=== PATIENT | male | born 1950 | race Caucasian/White ===

== ENCOUNTER → 2017-06-22 | Day surgery (SDC) | payer MEDICARE ==
[~2017-06-22] VITALS: Ht 180.3 cm; Wt 95.3 kg
[~2017-06-22] MED LIST: AUGMENTIN 875 M1 TAB PO; CLARITIN10 MG PO; FLONASE ALLERG9.9 ML NS; MOTRIN800 MG PO; PROVENTIL0.09 MG/AC IH; ZITHROMAX Z PA250 MG PO
--- NOTE | ~2017-06-22 | PROC NOTE ---
[place], [place] PROCEDURE NOTE NAME: [facility]ICKERS [id number] UNIT #: [id number] ROOM: DOCTOR: JUANA BELTRAN,DAGO BIRTHDATE: [birth year] DOS: 06/22/2017 PROCEDURE: Colonoscopy. INDICATIONS: Colon cancer screening. An informed consent was obtained from the patient after indication of procedure, the alternatives and potential complications were explained to him. PROCEDURE AND MEDICATIONS: Sedation was administered by Anesthesiology Department. Scope used was Olympus pediatric colonoscope, variable stiffness GIF-180, depth of insertion was to the cecum, which was identified by the usual landmarks, the ileocecal valve and triangular fold. FINDINGS: After adequate sedation, the patient was placed in left lateral decubitus position. Rectal examination showed normal sphincter tone and no external hemorrhoids. Scope was introduced into the rectum, then advanced to the cecum with slight difficulty due to looping in the left colon. The prep was adequate. Multiple diverticula were seen in the left colon consistent with moderate left-sided diverticular disease. The remaining colon mucosa appeared within normal range with no evidence of polyps, ulcerations or obstructing lesions. Retroflexed views in the rectum showed grade 2 internal hemorrhoids. The scope was then withdrawn after the rectum was decompressed. The patient tolerated the procedure well. IMPRESSION: 1. Moderate left-sided diverticular disease. 2. Internal hemorrhoids. 3. Normal colon mucosa, otherwise no polyps seen. PLAN: No need for further GI workup at this time. The patient was advised to follow a high fiber diet and use fiber supplements daily. Repeat screening colonoscopy is advised in 10 years. DAGO ARIAS MD CM:PROCNOTE:PROCEDURE NOTE [id number] DAGO ARIAS MD
[2017-06-22 08:00] VITALS: BP 112/52
[2017-06-22 08:31] VITALS: BP 116/74
[2017-06-22 08:46] VITALS: BP 127/80
[2017-06-22 09:01] VITALS: BP 119/73
== END | disposition home or self-care (01) ==
LOC: SDC 05-29 08:45
DX: Z12.11 Encounter for screening for malignant neoplasm of colon (principal); K57.30 Diverticulosis of large intestine without perforation or abscess without bleeding; K64.8 Other hemorrhoids; Z98.890 Other specified postprocedural states; Z87.891 Personal history of nicotine dependence
CPT/HCPCS: 00810; G0121

== ENCOUNTER 2018-03-04 08:12 | Emergency (ER) | payer MEDICARE ==
[~2018-03-04] VITALS: Wt 90.7 kg
--- NOTE | ~2018-03-04 | EKG ---
[place], [place] ELECTROCARDIOGRAM REPORT NAME: MAGDALENA VICKERS UNIT #: [id number] ROOM: DOCTOR: ONUR ORLANDO MD BIRTHDATE: [birth year] DOS: 03/04/2018 TIME: 0835 hours. FINDINGS: 1. Normal sinus rhythm at 69 beats per minute with ventricular couplet and isolated PVC. 2. An old inferior wall myocardial infarction. 3. An abnormal ECG. 4. No previous tracing is available for comparison. ONUR ORLANDO MD CM:EKGRPT:ELECTROCARDIOGRAM REPORT [id number] ONUR ORLANDO MD
[2018-03-04 08:39] LABS: BASO % 0.5 % (0.0-1.0); EOS # 0.1 10*3/uL (0.0-0.4); EOS % 1.2 % (1.0-4.0); HEMATOCRIT 44.5 % (42.0-52.0); HEMOGLOBIN 14.7 g/dl (14.0-18.0); LYMPH # 3.4 10*3/uL (1.3-4.4); LYMPH % 47.1 % (27.0-41.0); MEAN CELL VOLUME 94.5 fl (80.0-94.0); MEAN CORPUSCULAR HGB 31.2 pg (27.0-31.0); MEAN PLATELET VOLUME 9.7 fl (9.6-12.3); MONO # 0.7 10*3/uL (0.1-1.0); NEUT % 41.1 % (47.0-73.0); PLATELET COUNT AUTOMATED 216 10*3/uL (130-400); RED BLOOD COUNT 4.71 10*6/uL (4.50-5.90); RED CELL DISTRI WIDTH 12.5 % (0-14.5); WHITE BLOOD COUNT 7.3 10*3/uL (4.8-10.8)
[2018-03-04 08:46] LABS: BILIRUBIN NEGATIVE (NEGATIVE); BLOOD NEGATIVE (NEGATIVE); CLARITY CLEAR (CLEAR); COLOR YELLOW (YELLOW); GLUCOSE NEGATIVE (NEGATIVE); KETONE NEGATIVE (NEGATIVE); LEUKO ESTERASE NEGATIVE (NEGATIVE); NITRITE NEGATIVE (NEGATIVE); SPECIFIC GRAVITY <= 1.005 (1.005-1.030); UROBILINOGEN 0.2 E.U./dl (0.2-1.0)
[2018-03-04 08:49] LABS: ACT PARTIAL THROMBO TIME 21.3 SECONDS (20.8-31.5)
[2018-03-04 08:54] LABS: ALBUMIN 3.9 gm/dl (3.1-4.5); ALKALINE PHOSPHATASE 72 U/L (45-117); BUN 17 mg/dl (7-24); CHLORIDE 110 mmol/L (98-107); CREATININE 1.11 mg/dL (0.70-1.30); LIPASE 175 U/L (73-393); POTASSIUM 4.3 mmol/L (3.5-5.1); SGOT/AST 24 IU/L (3-35); SGPT/ALT 30 U/L (12-78); SODIUM 142 mmol/L (136-145); TOTAL PROTEIN 7.9 gm/dL (6.4-8.2)
[2018-03-04 08:54] LABS: EPITHELIAL CELLS 0-2; RBC 0-2 rbc/hpf (0-2); WBC 0-2 wbc/hpf (0-5)
[2018-03-04 08:58] LABS: TROPONIN I < 0.015 ng/ml (<0.045)
[2018-03-04 09:37] VITALS: BP 136/82
[2018-03-04 09:53] LABS: FREE T4 1.12 ng/dl (0.76-1.46)
[2018-03-04 09:58] LABS: THYROID STIM HORMONE (HS) 2.56 uIU/ml (0.358-4.75)
== END 2018-03-04 10:59 | disposition home or self-care (01) ==
LOC: ED 08:12
PROVIDERS: Emergency Medicine
DX: R53.83 Other fatigue (principal); D51.9 Vitamin B12 deficiency anemia, unspecified; Z98.890 Other specified postprocedural states

== ENCOUNTER 2019-07-21 09:09 | Inpatient (IN) | payer MEDICARE, BC ==
[~2019-07-21] VITALS: Ht 180.3 cm; Wt 90.8 kg
[2019-07-21] VITALS (8 sets, daily range): BP systolic 129–154; BP diastolic 75–90
[2019-07-21 10:27] LABS: HEMATOCRIT 42.8 % (42.0-52.0); HEMOGLOBIN 14.2 g/dl (14.0-18.0); MEAN CELL VOLUME 94.3 fl (80.0-94.0); MEAN CORPUSCULAR HGB 31.3 pg (27.0-31.0); MEAN CORPUSCULAR HGB CONC 33.2 g/dl (33.0-37.0); MEAN PLATELET VOLUME 9.7 fl (9.6-12.3); PLATELET COUNT AUTOMATED 257 10*3/uL (130-400); RED BLOOD COUNT 4.54 10*6/uL (4.50-5.90)
[2019-07-21 10:32] LABS: BILIRUBIN NEGATIVE (NEGATIVE); BLOOD 2+ (NEGATIVE); CLARITY CLEAR (CLEAR); COLOR YELLOW (YELLOW); GLUCOSE NEGATIVE (NEGATIVE); KETONE NEGATIVE (NEGATIVE); LEUKO ESTERASE NEGATIVE (NEGATIVE); NITRITE NEGATIVE (NEGATIVE); UROBILINOGEN 0.2 E.U./dl (0.2-1.0)
[2019-07-21 10:48] LABS: ALBUMIN 3.3 gm/dl (3.1-4.5); ALKALINE PHOSPHATASE 76 U/L (45-117); BASOPHILS 1 % (0-1); BUN 17 mg/dl (7-24); CHLORIDE 104 mmol/L (98-107); CREATININE 1.01 mg/dL (0.70-1.30); LIPASE 105 U/L (73-393); POTASSIUM 3.9 mmol/L (3.5-5.1); SGOT/AST 8 IU/L (3-35); SGPT/ALT 18 U/L (12-78); SODIUM 135 mmol/L (136-145); TOTAL CELLS COUNTED 100 #CELLS
[2019-07-21 10:49] LABS: PLATELET SUFFICIENCY NORMAL (NORMAL)
[2019-07-22] VITALS: BP 127/71
[2019-07-22 06:49] LABS: HEMATOCRIT 40.4 % (42.0-52.0); HEMOGLOBIN 13.3 g/dl (14.0-18.0); MEAN CELL VOLUME 94.6 fl (80.0-94.0); MEAN CORPUSCULAR HGB 31.1 pg (27.0-31.0); MEAN CORPUSCULAR HGB CONC 32.9 g/dl (33.0-37.0); MEAN PLATELET VOLUME 9.9 fl (9.6-12.3); PLATELET COUNT AUTOMATED 266 10*3/uL (130-400); RED BLOOD COUNT 4.27 10*6/uL (4.50-5.90)
[2019-07-22 07:20] LABS: ALBUMIN 2.9 gm/dl (3.1-4.5); BUN 14 mg/dl (7-24); CHLORIDE 104 mmol/L (98-107); POTASSIUM 3.7 mmol/L (3.5-5.1); SGOT/AST 11 IU/L (3-35); SODIUM 136 mmol/L (136-145)
[2019-07-22 07:27] LABS: ALKALINE PHOSPHATASE 65 U/L (45-117); CHOLESTEROL 187 mg/dL (<200); CREATININE 1.06 mg/dL (0.70-1.30); FREE T4 1.28 ng/dl (0.76-1.46); HDL CHOLESTEROL 54 mg/dl (40-60); LDL CHOLESTEROL 115 mg/dL (9-159); PHOSPHOROUS 2.8 mg/dL (2.5-4.9); SGPT/ALT 18 U/L (12-78); TOTAL PROTEIN 7.3 gm/dL (6.4-8.2); TRIGLYCERIDES 92 mg/dl (<150); VLDL CHOLESTEROL 18 mg/dL (6-40)
[2019-07-22 07:57] LABS: VITAMIN D, 25-HYDROXY 13.9 ng/mL (30-100)
[2019-07-22 08:00] VITALS: BP 132/77
[2019-07-22 08:05] LABS: PLATELET SUFFICIENCY NORMAL (NORMAL); TOTAL CELLS COUNTED 100 #CELLS
[2019-07-22 12:00] VITALS: BP 138/67
[2019-07-22 16:00] VITALS: BP 125/72
[2019-07-22 20:00] VITALS: BP 124/82
[2019-07-23] VITALS: BP 123/75
[2019-07-23 06:48] LABS: BASO # 0.1 10*3/uL (0.0-0.1); BASO % 0.5 % (0.0-1.0); EOS # 0.2 10*3/uL (0.0-0.4); EOS % 1.8 % (1.0-4.0); HEMATOCRIT 40.5 % (42.0-52.0); HEMOGLOBIN 13.3 g/dl (14.0-18.0); LYMPH # 3.4 10*3/uL (1.3-4.4); LYMPH % 29.1 % (27.0-41.0); MEAN CELL VOLUME 94.8 fl (80.0-94.0); MEAN CORPUSCULAR HGB 31.1 pg (27.0-31.0); MEAN CORPUSCULAR HGB CONC 32.8 g/dl (33.0-37.0); MEAN PLATELET VOLUME 9.7 fl (9.6-12.3); MONO # 1.4 10*3/uL (0.1-1.0); MONO % 11.8 % (3.0-9.0); NEUT # 6.6 10*3/uL (2.3-7.9); NEUT % 56.5 % (47.0-73.0); PLATELET COUNT AUTOMATED 269 10*3/uL (130-400); RED BLOOD COUNT 4.27 10*6/uL (4.50-5.90); WHITE BLOOD COUNT 11.6 10*3/uL (4.8-10.8)
[2019-07-23 08:00] VITALS: BP 132/77
[2019-07-23] MEDS ORDERED: VITAMIN D32000 UNI1 PO (09:06)
[2019-07-23] MEDS ORDERED: AUGMENTIN 875-875 MG PO (09:06)
[2019-07-23 12:00] VITALS: BP 118/75
== END 2019-07-23 13:58 | disposition home or self-care (01) | DRG 872 ==
LOC: ED 09:09 → 4E 14:24 → EDHOLD 14:24 → 4E 15:05
PROVIDERS: Internal Medicine; Nurse Practitioner; ADMIT Family Medicine
DX: A41.9 Sepsis, unspecified organism (principal); E87.1 Hypo-osmolality and hyponatremia; E44.0 Moderate protein-calorie malnutrition; K80.81 Other cholelithiasis with obstruction; K57.32 Diverticulitis of large intestine without perforation or abscess without bleeding; K76.0 Fatty (change of) liver, not elsewhere classified; R65.20 Severe sepsis without septic shock; K59.00 Constipation, unspecified; Z87.891 Personal history of nicotine dependence; Z82.49 Family history of ischemic heart disease and other diseases of the circulatory system; Z83.3 Family history of diabetes mellitus; Z68.27 Body mass index [BMI] 27.0-27.9, adult

== ENCOUNTER 2020-08-17 22:52 | Emergency (ER) | payer OTHER ==
[~2020-08-17] VITALS: Ht 180.3 cm; Wt 95.3 kg
[~2020-08-17 22:52] MED LIST changes: +AUGMENTIN 875-875 MG PO; +VITAMIN D32000 UNI1 PO
[2020-08-17 22:58] VITALS: BP 152/93
[2020-08-17] MEDS ORDERED: AMOXICILLIN500 M2 PO (23:23)
== END 2020-08-18 | disposition home or self-care (01) ==
LOC: ED 22:52
DX: H60.92 Unspecified otitis externa, left ear (principal); H66.92 Otitis media, unspecified, left ear; Z79.899 Other long term (current) drug therapy

== ENCOUNTER → 2021-01-24 | Outpatient (CLI) | payer MEDICARE, BC ==
[~2021-01-24] MED LIST changes: +AMOXICILLIN500 M2 PO
== END | disposition home or self-care (01) ==
LOC: CT 09:18
PROVIDERS: ATTEND Internal Medicine Critical Care Medicine
DX: J43.8 Other emphysema (principal); R91.8 Other nonspecific abnormal finding of lung field; K80.80 Other cholelithiasis without obstruction; I25.10 Atherosclerotic heart disease of native coronary artery without angina pectoris; Z68.29 Body mass index [BMI] 29.0-29.9, adult; Z87.891 Personal history of nicotine dependence

== ENCOUNTER → 2021-04-11 | Outpatient (CLI) | payer MEDICARE, BC ==
[2021-04-11 11:33] LABS: BASO % 0.4 % (0.0-1.0); EOS % 0.4 % (1.0-4.0); HEMATOCRIT 45.4 % (42.0-52.0); LYMPH # 2.9 10*3/uL (1.3-4.4); LYMPH % 34.6 % (27.0-41.0); MEAN CELL VOLUME 92.7 fl (80.0-94.0); MEAN CORPUSCULAR HGB 31.4 pg (27.0-31.0); MEAN CORPUSCULAR HGB CONC 33.9 g/dl (33.0-37.0); MEAN PLATELET VOLUME 9.5 fl (9.6-12.3); MONO # 0.9 10*3/uL (0.1-1.0); MONO % 10.2 % (3.0-9.0); NEUT # 4.6 10*3/uL (2.3-7.9); NEUT % 54.2 % (47.0-73.0); PLATELET COUNT AUTOMATED 261 10*3/uL (130-400); RED CELL DISTRI WIDTH 12.4 % (0-14.5); RETICULOCYTE % 1.57 % (0.50-2.50); WHITE BLOOD COUNT 8.4 10*3/uL (4.8-10.8)
[2021-04-11 11:42] LABS: BILIRUBIN Negative (Negative); BLOOD Negative (Negative); CLARITY Clear (Clear); COLOR Yellow (Yellow); GLUCOSE Negative (Negative); KETONE Negative (Negative); LEUKO ESTERASE Negative (Negative); NITRITE Negative (Negative); PH 6.5 (4.5-8.0)
[2021-04-11 11:52] LABS: ALBUMIN 3.9 gm/dl (3.1-4.5); BUN 13 mg/dl (7-24); CHLORIDE 106 mmol/L (98-107); CHOLESTEROL 257 mg/dL (<200); CREATININE 0.92 mg/dL (0.70-1.30); GAMMA GLUTAMYL TRANSPEPTIDASE 24 U/L (15-85); IRON 78 ug/dL (65-175); POTASSIUM 4.1 mmol/L (3.5-5.1); SGOT/AST 13 IU/L (3-35); SGPT/ALT 36 U/L (12-78); SODIUM 137 mmol/L (136-145); THYROXINE (T4) TOTAL 11.6 ug/dl (4.5-12.1); TOTAL IRON BINDING CAPACITY 288 ug/dl (250-450); TOTAL PROTEIN 7.8 gm/dL (6.4-8.2); TRIGLYCERIDES 293 mg/dl (<150)
[2021-04-11 11:55] LABS: MUCOUS 1+
[2021-04-11 12:00] LABS: ALKALINE PHOSPHATASE 62 U/L (45-117); LDL CHOLESTEROL 146 mg/dL (9-159); T3 UPTAKE 34 % (31-39)
[2021-04-11 12:18] LABS: FERRITIN 357.7 ng/mL (22.0-322.0); VITAMIN D, 25-HYDROXY 21.3 ng/mL (30-100)
[2021-04-12 12:07] LABS: RHEUMATOID ARTHRITIS FACTOR 22.6 IU/mL (0.0-13.9)
[2021-04-12 13:07] LABS: ANTI-DSDNA ANTIBODIES 1 IU/mL (0-9)
== END | disposition home or self-care (01) ==
LOC: LAB 11:14
PROVIDERS: ATTEND Family Medicine
DX: Z12.5 Encounter for screening for malignant neoplasm of prostate (principal); R53.83 Other fatigue; R79.89 Other specified abnormal findings of blood chemistry; E78.5 Hyperlipidemia, unspecified

== ENCOUNTER → 2021-04-21 | Outpatient (CLI) | payer MEDICARE, BC | END | disposition home or self-care (01) | LOC: US 07:55 | PROVIDERS: ATTEND Family Medicine | DX: K76.0 Fatty (change of) liver, not elsewhere classified (principal); K80.20 Calculus of gallbladder without cholecystitis without obstruction ==

== ENCOUNTER → 2021-07-01 | Outpatient (CLI) | payer MEDICARE, BC ==
[2021-07-01 09:53] LABS: ACT PARTIAL THROMBO TIME 25.4 SECONDS (20.0-32.1)
== END | disposition home or self-care (01) ==
LOC: LAB 08:51
PROVIDERS: ATTEND Urology
DX: Z01.818 Encounter for other preprocedural examination (principal); D68.8 Other specified coagulation defects

== ENCOUNTER → 2022-02-01 | Outpatient (CLI) | payer MEDICARE, BC | END | disposition home or self-care (01) | LOC: LAB 08:26 | PROVIDERS: ATTEND Urology | DX: Z12.5 Encounter for screening for malignant neoplasm of prostate (principal) ==

== ENCOUNTER 2024-01-25 03:27 | Emergency (ER) | payer MEDICARE, BC ==
[~2024-01-25] VITALS: Ht 180.3 cm; Wt 95.3 kg
[2024-01-25 03:45] VITALS: BP 152/82
[2024-01-25] MEDS ORDERED: Amoxicillin/Clavulanate Pota 875 MG TAB PO ONE (03:50)
[2024-01-25] MEDS ORDERED: AMOX-CLAV 875-1 EACH PO (03:51)
== END 2024-01-25 04:32 | disposition home or self-care (01) ==
LOC: ED 03:27
DX: J32.9 Chronic sinusitis, unspecified (principal); F17.210 Nicotine dependence, cigarettes, uncomplicated; Z79.899 Other long term (current) drug therapy; Z79.2 Long term (current) use of antibiotics; Z98.890 Other specified postprocedural states